=== PATIENT | male | born 1975 | race Caucasian/White ===

== ENCOUNTER 2023-06-22 07:38 | Day surgery (SDC) | payer OTHER, BC ==
[~2023-06-22] VITALS: Ht 185.4 cm; Wt 109.3 kg
[~2023-06-22 07:38] MED LIST: ASPI325 PO; CALCA500CH PO; LORA1 PO
[2023-06-22] MEDS ORDERED: OZEMPIC2 MG/0.75 SC (08:29)
[2023-06-22] MEDS ORDERED: METF500 PO (08:29)
--- NOTE | 2023-06-22 09:30 | NUR ---
06/22/23 0930 Jerrod Goemz BLOCK PREFORMED AT BEDSIDE WITH DR. MOSLEY AND DR. BOOKER ON RIGHT SHOULDER. TIME OUT PERFORMED BEFORE BLOCK, ALL INFORMATION VERIFIED. 2MG OF VERSED GIVEN DURING PROCEDURE PER VERBAL ORDERS OF DR. MOSLEY. FAMOTIDINE 20MG VIA IV GIVEN PER VERBAL ORDERS FROM DR. MOSLEY. VSS THROUGHOUT PROCEDURE.
--- NOTE | 2023-06-22 10:11 | NUR ---
06/22/23 1011 Rufina Chiu, SPIDER, BOLSTERS, [employer]S MANAGER, GELX3, WEDGE UNDER KNEES, LEFT ARM SECURED ON PADDED ARM BRIAN, SEAT BELT X 2.
[2023-06-22 12:20] VITALS: BP 149/86
== END 2023-06-22 12:19 | disposition home or self-care (01) ==
LOC: ORSCSDS 07:38
PROVIDERS: Orthopaedic Surgery
PROC: 0RBJ4ZZ Excision of Right Shoulder Joint, Percutaneous Endoscopic Approach (ICD-10-PCS; principal; 2023-06-22 09:00)
DX: M75.111 Incomplete rotator cuff tear or rupture of right shoulder, not specified as traumatic (principal); I10 Essential (primary) hypertension; E11.9 Type 2 diabetes mellitus without complications; K21.9 Gastro-esophageal reflux disease without esophagitis; F41.9 Anxiety disorder, unspecified; Z79.84 Long term (current) use of oral hypoglycemic drugs; Z79.899 Other long term (current) drug therapy
CPT/HCPCS: 82947; J0171; J0690; J1100; J1885; J2250; J2371; J2405; J2704; J2765; J3010; J7030; J7120

== ENCOUNTER → 2025-08-27 | Outpatient (CLI) | payer BC ==
[~2025-08-27] MED LIST changes: +METF500 PO; +OZEMPIC2 MG/0.75 SC
[2025-08-27 12:55] LABS: BASOPHILS ABSOLUTE AUTO 0.06 K/mm3 (0.00-0.23); BASOPHILS PERCENT AUTO 1 % (0-2); EOSINOPHILS ABSOLUTE AUTO 0.13 K/mm3 (0.00-0.68); EOSINOPHILS PERCENT AUTO 2 % (0-6); Hematocrit 46.0 % (37.0-53.0); Hemoglobin 15.9 g/dL (13.5-17.5); IMMATURE GRAN ABSOLUTE AUTO 0.04 K/mm3 (0.00-0.10); IMMATURE GRAN PERCENT AUTO 1 % (0-1); LYMPHOCYTES ABSOLUTE AUTO 1.44 K/mm3 (0.84-5.20); LYMPHOCYTES PERCENT AUTO 19 % (21-46); MONOCYTES ABSOLUTE AUTO 0.47 K/mm3 (0.16-1.47); MONOCYTES PERCENT AUTO 6 % (4-13); Mean Corpuscular HGB Conc 34.6 g/dL (31.5-36.5); Mean Corpuscular Volume 84 fL (80-100); NEUTROPHILS ABSOLUTE AUTO 5.46 K/mm3 (1.96-9.15); NEUTROPHILS PERCENT AUTO 72 % (41-73); NRBC ABSOLUTE 0.00 K/mm3 (0.00-0.02); NRBC Auto 0.0 /100 WBC (0.0-0.2); Platelet Count 282 K/mm3 (150-400); RDW Coefficient Variation 12.7 % (11.7-14.2); RDW Standard Deviation 38.3 fL (35.1-46.3)
[2025-08-28 22:01] LABS: HSV 1 GLYCOPROTEIN G AB, IGG 37.0 IV (<=0.89); HSV 2 GLYCOPROTEIN G AB, IGG 0.26 IV (<=0.89)
== END ==
LOC: LAB 12:50 → LAB SHORT 12:50
PROVIDERS: Physician Assistant
DX: B02.8 Zoster with other complications (principal)
CPT/HCPCS: 85025; 85651; 86695; 86696